=== PATIENT | male | born 1965 | race Caucasian/White ===

== ENCOUNTER 2017-01-23 18:57 | Emergency (ER) | payer OTHER ==
[~2017-01-23] VITALS: Ht 165.1 cm; Wt 77.0 kg
[2017-01-23 19:47] VITALS: BP 150/91; PULSE 79; RESP 18; O2SAT 98
[2017-01-23 20:42] LABS: BASOPHILS % (AUTO) 0.6 % (0-3); EOSINOPHILS % (AUTO) 1.9 % (0-5); Mean Corpuscular Hemoglobin 32.1 pg (27.0-35.0); Mean Corpuscular Volume 95.7 fL (81-100); NEUTROPHILS % (AUTO) 60.4 % (40-74); Platelet Count 313 bil/L (150-400)
[2017-01-23 21:01] LABS: D-Dimer 0.62 mg/L FEU (<0.50); INR 0.96 ratio
--- NOTE | 2017-01-23 21:39 | ED.REPORT ---
HPI-Extremity Problem Upper Date of Service Jan 23, 2017 ED Provider: Hardy Strauss MD Patient is a healthy 51 year old male presents to the ED with a lump in his right arm that first appeared 2 days ago. The swelling began in his shoulder and migrated down to his right biceps. He reports mild, intermittent soreness to the arm with streaking erythema. His symptoms have been mild but constant since onset. Patient was seen at Urgent Care and was sent to the ED for further evaluation with concern for infection or blood clot. He denies any previous history of blood clot, recent injury, drug use, recent surgeries or IV in the arm. He denies any fever, chills, weakness or numbness/tingling in the arm. Patient denies any recent cat scratches or exposure. Nursing Notes Stated Complaint: RIGHT ARM PAIN Chief Complaint: Extremity Trauma Nursing Notes Reviewed: Yes Allergies: Coded Allergies: No Known Allergies (Unverified , 01/23/17) General Time Seen by MD: 21:35 Chief Complaint Arm injury right Hx Obtained From: Patient Arrived By: Walk-in Onset Occurred: 2 days ago Symptom Duration: Since onset Location: : Arm right Quality: Dull (Sore) Severity: Current: Mild Severity: Maximum: Mild Associated with: Reports: Muscle pain (soreness), Swelling (right arm ), Denies: Fever, Numb extremities, Weakness Pertinent Negative: Pt denies other symptoms Recent Healthcare: No recent doctor visit, No recent hospitalization Past Medical History Past Medical History None reported. Past Surgical History None reported. Smoking History Unknown if Ever Smoker Social History Alcohol Use: Denies alcohol use Drug Use: Denies drug use Other Social History: Good social support, Local resident Ambulatory Status Independent Review of Systems Constitutional: Denies: Chills, Fever Musculoskeletal: Reports: Extremity pain (mild right arm soreness), Extremity swelling (Mild right arm redness and swelling ) Neurologic: Denies: Numbness, Weakness Complete sys rev & neg: except as marked. Physical Exam Initial Vital Signs Vital Signs (First) Date Time Temp Pulse Resp B/P Pulse Ox O2 Delivery O2 Flow Rate FiO2 01/23/17 19:47 36.7 79 18 150/91 98 Room Air Initial VS: Reviewed Head / Eyes: Atraumatic, Normocephalic, PERRL Lower Extremities: Vascular intact, Neuro intact, No swelling, No tenderness Skin: Warm, Dry, No cyanosis Neurologic: Alert, Oriented, Nonfocal Psychiatric: Mood/affect normal, Behavior normal, Normal thought content General/Constitutional: Awake, Alert, No acute distress Neck: Atraumatic, Supple, Full range of motion Respiratory / Chest: Atraumatic, Breath sounds NL, Breath sounds = bilat, No respiratory distress Cardiovascular: Heart rate NL, Regular rhythm, Heart sounds NL, No gallop, No murmurs, No rubs Upper Extremity / MS: Atraumatic, Neurologic intact (Strength intact bilaterally ), Vascular intact Right Upper Arm: Positive: Erythema present (Blanchinig erythema ) Right Forearm: Positive: Erythema present (Streaking erythema from the forearm to the radial aspect of the forearm) UPPER EXTREMITIES: Palpable region of nodularity to the R proximal biceps region No palpable regions past the biceps Wrist / Hand: Atraumatic, Inspection NL, Neurologic intact, Vascular intact Interpretation & Diagnostics Lab Results Interpretation Result Diagram: 01/23/17203201/23/172032 Test 01/23/17 20:33 White Blood Count 10.4th/mm3 (3.8-10.1) Red Blood Count 4.86mil/mm3 (4.40-5.80) Hemoglobin 15.6g/dL (13.8-17.2) Hematocrit 46.5% (41.0-50.0) Mean Corpuscular Volume 95.7fL (81-100) Mean Corpuscular Hemoglobin 32.1pg (27.0-35.0) Mean Corpuscular Hemoglobin Concent 33.5% (32.0-37.0) Red Cell Distribution Width 13.1% (12.3-15.4) Platelet Count 313bil/L (150-400) Neutrophils (%) (Auto) 60.4% (40-74) Lymphocytes (%) (Auto) 24.8% (14-46) Monocytes (%) (Auto) 12.0% (4-12) Eosinophils (%) (Auto) 1.9% (0-5) Basophils (%) (Auto) 0.6% (0-3) Prothrombin Time 10.3sec (8.1-12.5) Prothromb Time International Ratio 0.96ratio D-Dimer 0.62mg/L FEU (<0.50) Sodium Level 138mEq/L (134-144) Potassium Level 4.8mEq/L (3.5-5.2) Chloride Level 104mEq/L (97-108) Carbon Dioxide Level 23mmol/L (18-29) Blood Urea Nitrogen 22mg/dL (6-24) Creatinine 0.94mg/dL (0.76-1.27) Estimat Glomerular Filtration Rate 90mL/min (>59) Glucose Level 113mg/dL (60-99) Calcium Level 9.5mg/dL (8.5-10.1) Total Bilirubin 0.3mg/dL (0.0-1.2) Aspartate Amino Transf (AST/SGOT) 22U/L (0-50) Alanine Aminotransferase (ALT/SGPT) 19U/L (0-44) Alkaline Phosphatase 107U/L (25-150) Total Protein 7.6g/dL (6.4-8.4) Albumin 4.2g/dL (3.4-5.0) Hold Bailey Top Tube Received (Received) US Soft Tissue/Musculoskeletal IMPRESSION: No venous thrombus. Incidental superficial lymph nose in the upper arm. Exam Performed by: Radiologist ([facility]) Re-Eval/Medical Decision Med Decision/Clinical Course Patient is a generally healthy 51-year-old male who presents with a swollen face tender lump in his right proximal arm with associated streaking erythema. He denies fever, injuries, history of blood clots or any other symptoms. Here in the emergency department he is afebrile stable vital signs and examination as above. LABS CBC unremarkable CMP unremarkable D dimer elevated at 0.62 Coag studies normal Upper Extremity US: IMPRESSION: No venous thrombus. Incidental superficial lymph nose in the upper arm. Ultrasound as above demonstrated no evidence of DVT nor does he have any major risk factors for DVT. He is afebrile and examination reveals no significant cellulitis or evidence of abscess. He does appear to have an inflamed lymph node with some associated erythema and I will treat him with a course of oral clindamycin. At this time, I feel that he is appropriate for discharge home. Prior to discharge follow-up and return precautions were reviewed in detail with the patient who verbalized understanding and agreement with the plan. The patient was discharged in stable condition. Re-Evaluation/Progress : Time of Eval: 22:55 Patient Status: Condition improved Re-Evaluation/Progress Note: Pt is informed of his reassuring lab results and US results. All questions about his dx are addressed. He understands and agrees with the treatment plan to discharge with follow up. Counseled Regarding: Diagnosis, Lab results, Need for follow-up, When/why to return to ED Discharge & Departure Impression: Primary Impression: Cellulitis Site of cellulitis: extremity Site of cellulitis of extremity: upper extremity Laterality: right Qualified Code: L03.113 - Cellulitis of right upper limb Additional Impression: Inflammation of lymphatics Disposition: Home Discharge Condition All VS Reviewed: Yes Condition: Improved Patient Instructions: Cellulitis (ED) Additional Instructions: Thank you for seeking care at the emergency room. It is difficult for us to make definitive diagnoses in the ED but we believe that you are experiencing an infected lymph node and cellulitis. Our primary goal today in the ED was to evaluate you for any life-threatening conditions. Your evaluation was reassuring. You will be discharged with a course of oral antibiotics, please take as directed. You should follow-up with your primary doctor in the next week. You should return to the ED immediately if you develop worsening redness, swelling, fevers, vomiting, cough, shortness of breath, chest pain, lightheadedness, weakness or any other concerning signs or symptoms. Thank you for letting us partake in your care today. Referrals: [facility] (PCP) [facility] Scribe Attestation Portions of this note were transcribed by Jamar Hernandez. I, Dr. Strauss personally performed the history, physical exam and medical decision-making; I reviewed and confirmed the accuracy of the information in the transcribed note. Signed by: Inessa Boateng, 01/23/17 [id number]. Hardy Strauss MD Jan 23, 2017 21:39 JAMAR HERNANDEZ Jan 23, 2017 22:34
[2017-01-23 21:44] VITALS: BP 146/84; PULSE 66; RESP 18; O2SAT 99
[2017-01-23 22:58] VITALS: BP 130/76; PULSE 64; RESP 20; O2SAT 98
[2017-01-24] MEDS ORDERED: _Clindamycin 150 mg Capsule PO SCH (06:30)
--- NOTE | 2017-01-24 10:38 | DRSVH ---
PROCEDURE: US VENOUS ARM DUPLEX UNILATERAL, RIGHT INDICATIONS: painful lump TECHNIQUE: Real-time imaging, as well as color and pulse Doppler interrogation, was performed of the right upper extremity deep veins from the inferior neck to the antecubital fossa. COMPARISON: None. FINDINGS: The internal jugular vein, visualized portions of the subclavian vein, axillary, and brach ial veins are free of intraluminal thrombus. Where physically possible, the veins are normally compr essible. Color and pulse Doppler demonstrate normal intraluminal flow, with expected phasicity and p ulsatility. Additional scanning of the cephalic and basilic veins of the superficial system demonstr ate normal compressibility, without thrombus. Superficial lymph node present. IMPRESSION: 1. No right arm deep venous thrombosis. 2. Superficial lymph node which demonstrates normal brittaney morphology measuring roughly 4 mm in short axis. Note: These findings are concordant with the preliminary interpretation. Dictated by: Ge NGUYEN Interpreted: Jordin Lopez MD on 01/24/2017 at 9:33 Approved by: Jordin Lopez M.D. on 01/24/2017 at 10:36
== END 2017-01-23 23:10 | disposition home or self-care (01) ==
LOC: SED 18:57
DX: L03.113 Cellulitis of right upper limb (principal)
CPT/HCPCS: 36415; 80053; 85025; 85378; 85610; 93971; 99284; G0463